=== PATIENT | male | born 1960 | race Caucasian/White ===

== ENCOUNTER 2016-12-01 16:32 | Emergency (ER) | payer OTHER ==
[2016-12-01] MEDS ORDERED: NS 0.9% 1000 ML* 1,000 ML IV SCH (17:30)
[2016-12-01 17:32] VITALS: BP 136/73
[2016-12-01 17:33] LABS: Hematocrit 42 % (42-52); Hemoglobin 14.2 g/dl (14.0-18.0); Mean Corpuscular HGB Conc 34 g/dl (31-36); Mean Corpuscular Hemoglobin 32 pg (27-31); Mean Corpuscular Volume 93 fL (80-94); Mean Platelet Volume 8 um3 (7.4-10.4); Red Blood Count 4.51 10^6/ul (4.0-5.4); Red Cell Distribution Width 13 % (10.5-15); White Blood Count 8.1 10^3/ul (3.5-10.8)
[2016-12-01 17:50] LABS: Albumin 3.9 g/dL (3.2-5.2); C Reactive Protein 2.15 mg/L (< 5.00); EGFR African American 98.7 (>60); EGFR Non-African American 76.7 (>60); Globulin 2.8 g/dL (2-4); Magnesium 2.1 mg/dL (1.9-2.7); Total Bilirubin 0.8 mg/dL (0.2-1.0); Total Protein 6.7 g/dL (6.4-8.9)
[2016-12-01 18:15] LABS: TSH (Thyroid Stimulating Horm) 0.6 mcIU/mL (0.34-5.60)
--- NOTE | 2016-12-01 18:15 | RAD ---
INDICATION: Chest pain COMPARISON: March 04, 2008 TECHNIQUE: An AP portable view obtained at 1750 hours is submitted. FINDINGS: Bones/Soft Tissues: There are no acute bony findings. Cardiomediastinal: The cardiomediastinal silhouette is normal. Lungs: There are no infiltrates. Pleura: There are no pleural effusions. Other: None IMPRESSION: NO ACTIVE DISEASE.
--- NOTE | 2016-12-01 18:27 | ED ---
Jackie Lunsford SooYoung, scribed for Eze Reddy MD on 12/01/16 at 1754 . HPI Chest Pain - HPI Summary HPI Summary: A 56 y/o M presents to ED with c/o non-radiating, constant CP located at his upper sternum onset 0200. Denies nausea, SOB, diaphoresis. He describes it as a mild ache and discomfort, rates it as 1-2 out of 10. 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 Pert PMHx: HDL. Non-smoker. No previous stress test. - History of Current Complaint Chief Complaint: EDChestPainROMI Time Seen by Provider: 12/01/16 17:51 Hx Obtained From: Patient Onset/Duration: Started Hours Ago, Still Present Timing: Constant Initial Severity: Mild Current Severity: Mild Pain Intensity: 0 Pain Scale Used: 0-10 Numeric Chest Pain Location: Upper Sternal Chest Pain Radiates: No Character: Dull/Aching, Other: - discomfort Associated Signs and Symptoms: Negative: Shortness of Breath, Diaphoresis, Nausea PMH/Surg Hx/FS Hx/Imm Hx Previously Healthy: No Cardiovascular History: Reports: Hx Hypercholesterolemia, Hx Hypertension Sensory History: Denies: Hx Vision Problem Infectious Disease History: No Infectious Disease History: Denies: Traveled Outside the [place] in Last 30 Days - Family History Known Family History: Positive: Unknown - adopted Family History: Adopted. - Social History Occupation: Unemployed - SELF Lives: Alone Alcohol Use: None Hx Substance Use: No Substance Use Type: Reports: None Smoking Status (MU): Unknown if Ever Smoked Review of Systems Negative: Fever, Skin Diaphoresis Positive: Chest Pain Negative: Shortness Of Breath Negative: Nausea All Other Systems Reviewed And Are Negative: Yes Physical Exam Triage Information Reviewed: Yes Vital Signs On Initial Exam: Initial Vitals Temp Pulse Resp BP Pulse Ox 98.4 F 91 16 149/79 98 12/01/16 16:34 12/01/16 16:34 12/01/16 16:34 12/01/16 16:34 12/01/16 16:34 Vital Signs Reviewed: Yes Appearance: Positive: Well-Appearing, No Pain Distress Skin: Positive: Warm, Skin Color Reflects Adequate Perfusion, Dry Head/Face: Positive: Normal Head/Face Inspection Eyes: Positive: EOMI, VONDA ENT: Positive: Normal ENT inspection Neck: Positive: Supple, Nontender Respiratory/Lung Sounds: Positive: Clear to Auscultation, Breath Sounds Present Cardiovascular: Positive: RRR Abdomen Description: Positive: Nontender, Soft Musculoskeletal: Positive: Normal, Strength/ROM Intact Neurological: Positive: Normal, Sensory/Motor Intact, Alert, Oriented to Person Place, Time Psychiatric: Positive: Affect/Mood Appropriate - [place] Coma Scale Coma Scale Total: 15 Diagnostics - Vital Signs Vital Signs Temp Pulse Resp BP Pulse Ox 12/01/16 17:30 98.2 F 85 16 136/73 98 12/01/16 16:34 98.4 F 91 16 149/79 98 - Laboratory Lab Results: Lab Results 12/01/16 12/01/16 12/01/16 Range/Units 17:10 17:10 17:10 WBC 8.1 (3.5-10.8) 10^3/ul RBC 4.51 (4.0-5.4) 10^6/ul Hgb 14.2 (14.0-18.0) g/dl Hct 42 (42-52) % MCV 93 (80-94) fL MCH 32 H (27-31) pg MCHC 34 (31-36) g/dl RDW 13 (10.5-15) % Plt Count 195 (150-450) 10^3/ul MPV 8 (7.4-10.4) um3 Neut % (Auto) 65.0 (38-83) % Lymph % (Auto) 25.1 (25-47) % [place] % (Auto) 8.5 (1-9) % Eos % (Auto) 0.8 (0-6) % Baso % (Auto) 0.6 (0-2) % Absolute Neuts (auto) 5.3 (1.5-7.7) 10^3/ul Absolute Lymphs (auto) 2.0 (1.0-4.8) 10^3/ul Absolute Monos (auto) 0.7 (0-0.8) 10^3/ul Absolute Eos (auto) 0.1 (0-0.6) 10^3/ul Absolute Basos (auto) 0 (0-0.2) 10^3/ul Absolute Nucleated RBC 0 10^3/ul Nucleated RBC % 0 INR (Anticoag Therapy) 0.98 (0.89-1.11) APTT 32.2 (26.0-36.3) seconds D-Dimer, Quantitative < 200 (Less Than 230) ng/mL Sodium 137 (133-145) mmol/L Potassium 4.0 (3.5-5.0) mmol/L Chloride 107 (101-111) mmol/L Carbon Dioxide 23 (22-32) mmol/L Anion Gap 7 (2-11) mmol/L BUN 15 (6-24) mg/dL Creatinine 1.00 (0.67-1.17) mg/dL Est GFR ( Amer) 98.7 (>60) Est GFR (Non-Af Amer) 76.7 (>60) BUN/Creatinine Ratio 15.0 (8-20) Glucose 98 (70-100) mg/dL Lactic Acid (0.5-2.0) mmol/L Calcium 9.0 (8.6-10.3) mg/dL Magnesium 2.1 (1.9-2.7) mg/dL Total Bilirubin 0.80 (0.2-1.0) mg/dL AST 22 (13-39) U/L ALT 24 (7-52) U/L Alkaline Phosphatase 64 (34-104) U/L Total Creatine Kinase 170 (10-223) U/L CK-MB (CK-2) Pending Troponin I 0.00 (<0.04) ng/mL C-Reactive Protein 2.15 (< 5.00) mg/L Total Protein 6.7 (6.4-8.9) g/dL Albumin 3.9 (3.2-5.2) g/dL Globulin 2.8 (2-4) g/dL Albumin/Globulin Ratio 1.4 (1-3) Lipase 16 (11.0-82.0) U/L TSH Pending 12/01/16 Range/Units 17:10 WBC (3.5-10.8) 10^3/ul RBC (4.0-5.4) 10^6/ul Hgb (14.0-18.0) g/dl Hct (42-52) % MCV (80-94) fL MCH (27-31) pg MCHC (31-36) g/dl RDW (10.5-15) % Plt Count (150-450) 10^3/ul MPV (7.4-10.4) um3 Neut % (Auto) (38-83) % Lymph % (Auto) (25-47) % [place] % (Auto) (1-9) % Eos % (Auto) (0-6) % Baso % (Auto) (0-2) % Absolute Neuts (auto) (1.5-7.7) 10^3/ul Absolute Lymphs (auto) (1.0-4.8) 10^3/ul Absolute Monos (auto) (0-0.8) 10^3/ul Absolute Eos (auto) (0-0.6) 10^3/ul Absolute Basos (auto) (0-0.2) 10^3/ul Absolute Nucleated RBC 10^3/ul Nucleated RBC % INR (Anticoag Therapy) (0.89-1.11) APTT (26.0-36.3) seconds D-Dimer, Quantitative (Less Than 230) ng/mL Sodium (133-145) mmol/L Potassium (3.5-5.0) mmol/L Chloride (101-111) mmol/L Carbon Dioxide (22-32) mmol/L Anion Gap (2-11) mmol/L BUN (6-24) mg/dL Creatinine (0.67-1.17) mg/dL Est GFR ( Amer) (>60) Est GFR (Non-Af Amer) (>60) BUN/Creatinine Ratio (8-20) Glucose (70-100) mg/dL Lactic Acid 0.8 (0.5-2.0) mmol/L Calcium (8.6-10.3) mg/dL Magnesium (1.9-2.7) mg/dL Total Bilirubin (0.2-1.0) mg/dL AST (13-39) U/L ALT (7-52) U/L Alkaline Phosphatase (34-104) U/L Total Creatine Kinase (10-223) U/L CK-MB (CK-2) Troponin I (<0.04) ng/mL C-Reactive Protein (< 5.00) mg/L Total Protein (6.4-8.9) g/dL Albumin (3.2-5.2) g/dL Globulin (2-4) g/dL Albumin/Globulin Ratio (1-3) Lipase (11.0-82.0) U/L TSH Result Diagrams: 12/01/16 17:10 12/01/16 17:10 Lab Statement: Any lab studies that have been ordered have been reviewed, and results considered in the medical decision making process. - Radiology CXR Xray Interpretation: No Acute Changes - IMPRESSION: No active dz. Radiology Interpretation Completed By: Radiologist Chest Pain Course/Dx - Course Course Of Treatment: NO CRITICAL CARE TIME. DISCUSSED RESULTS WITH PATIENT/ . DISCUSSED ADMISSION WITH PATIENT. PATIENT DECLINED ADMISSION. CHEST PAIN SINCE 2AM SO, TROPONIN IN ED WAS GREATER THAN 6 HOURS POST ONSET. DISCHARGE HOME STABLE, F/U WITH PMD TOMORROW, RETURN IF WORSE OR ANY CONCERNS. Pt given fluids in ED. Lab results are nml. CXR is nml. Assessment/Plan: Discussed f/u with PCP, taking daily baby aspirin, and having a stress test done. - Diagnoses Provider Diagnoses: Chest pain - Provider Notifications Discussed Care Of Patient With: David Durbin - hospitalist Time Discussed With Above Provider: 18:09 Discharge - Discharge Plan Condition: Stable Disposition: HOME Patient Education Materials: Chest Pain (ED) Referrals: Giovanni Atkinson MD [Primary Care Provider] - Additional Instructions: FOLLOW UP WITH YOUR DOCTOR. RETURN TO THE EMERGENCY DEPARTMENT FOR ANY WORSENING OF YOUR CONDITION; CHEST PAIN, SHORTNESS OF BREATH, YOU FEEL ILL OR QUESTIONS OR CONCERNS. The documentation as recorded by the Jackie mendez SooYoung accurately reflects the service I personally performed and the decisions made by me, Eze Reddy MD.
== END 2016-12-01 18:39 | disposition home or self-care (01) ==
LOC: ED 16:32
DX: R07.9 Chest pain, unspecified (principal); E78.00 Pure hypercholesterolemia, unspecified; I10 Essential (primary) hypertension
CPT/HCPCS: 36415; 71010; 80053; 82550; 82553; 83605; 83690; 83735; 83880; 84443; 84484; 85025; 85379; 85610; 85730; 86140; 93005; 99284

== ENCOUNTER 2018-12-13 11:11 | Emergency (ER) | payer OTHER ==
--- NOTE | 2018-12-13 11:21 | UC ---
Abdominal Pain Male HPI - HPI Summary HPI Summary: 58 yo male presents with LLQ/left flank pain since 1800 last evening. He has been vomiting since that time and unable to eat or drink. He has never had a kidney stone in the past. He was feeling well prior to this event. Denies diarrhea, constipation, dysuria, or hematuria. No SOB or chest pain. PMHx with HTN and HLD. - History of Current Complaint Stated Complaint: ABD PAIN Time Seen by Provider: 12/13/18 11:20 Hx Obtained From: Patient Onset/Duration: Sudden Onset Severity Initially: Severe Severity Currently: Severe Pain Intensity: 10 Pain Scale Used: 0-10 Numeric - Allergies/Home Medications Allergies/Adverse Reactions: Allergies Allergy/AdvReac Type Severity Reaction Status Date / Time No Known Allergies Allergy Verified 12/13/18 11:24 PMH/Surg Hx/FS Hx/Imm Hx Endocrine History: Dyslipidemia Cardiovascular History: Hypertension - Surgical History Surgical History: None - Family History Known Family History: Positive: Unknown - adopted Family History: Adopted. - Social History Lives: With Family Alcohol Use: None Substance Use Type: None Smoking Status (MU): Unknown if Ever Smoked Review of Systems All Other Systems Reviewed And Are Negative: Yes Constitutional: Positive: Negative Skin: Positive: Negative Respiratory: Positive: Negative Cardiovascular: Positive: Negative Gastrointestinal: Positive: Abdominal Pain, Vomiting, Nausea Neurovascular: Positive: Negative Neurological: Positive: Negative Psychological: Positive: Negative Physical Exam - Summary Physical Exam Summary: GENERAL: Moderate pain distress. Vomiting. SKIN: No rashes, sores, lesions, or open wounds. NECK: Supple. Nontender. No lymphadenopathy. CHEST: CTAB. Tachypneic CV: RRR. Without m/r/g. Pulses intact. Cap refill <2seconds ABDOMEN: Soft. NTTP. No distention or guarding. Bowel sounds present. Left flank TTP. NEURO: Alert. PSYCH: Age appropriate behavior. Triage Information Reviewed: Yes Vital Signs: Vital Signs: Temp Pulse Resp BP Pulse Ox 97.1 F 74 26 117/70 97 12/13/18 11:29 12/13/18 11:29 12/13/18 11:29 12/13/18 11:29 12/13/18 11:29 Vital Signs Reviewed: Yes Abd Pain Male Course/Dx - Course Course Of Treatment: High suspicion for urinary calculi at this time, but given pt's degree of discomfort and no hx of kidney stones - recommended transfer to ED for further evaluation. His discomfort could also represent diverticulitis and/or bowel perforation, but he is currently afebrile. Pt was agreeable to transfer. In the clinic he was given Zofran 4mg, Morphine 4mg, and toradol 30mg IV. Transferred via [facility] to [facility] [place] ED. Call to Emma in the ED for report - Differential Dx/Clinical Impression Provider Diagnosis: Abdominal pain, Flank pain Discharge - Sign-Out/Discharge Documenting (check all that apply): Patient Departure All imaging exams completed and their final reports reviewed: No Studies - Discharge Plan Condition: Stable Disposition: TRANS HIGHER LVL OF CARE FAC Referrals: Olena Quezada [Primary Care Provider] - - Billing Disposition and Condition Condition: STABLE Disposition: Trans Higher Lvl of Care Fac - Attestation Statements Provider Attestation: I was available for consult. This patient was seen by the [facility]ALE[facility]. The patient was not presented to, seen by, or examined by me. -Chito
[2018-12-13] MEDS ORDERED: Ondansetron INJ* 2 MG/ML VIAL IV ONE (11:27)
[2018-12-13] MEDS ORDERED: Morphine 4 MG/ML VIAL (1 ml) 4 MG/ML VIAL IV ONE (11:27)
[2018-12-13] MEDS ORDERED: Ketorolac INJ* 30 MG/ML 1 ML VIAL IV PUSH ONE (11:29)
[2018-12-13 11:34] VITALS: BP 117/70
[2018-12-13] MEDS ORDERED: NS 0.9% 1000 ML** 1,000 ML IV ONE (11:38)
[2018-12-13] MEDS ORDERED: Morphine 10 MG/ML VIAL (1 ml) IV ONE (11:42)
== END 2018-12-13 12:00 | disposition short-term general hospital (02) ==
LOC: UCEAST 11:11
DX: R10.32 Left lower quadrant pain (principal); R10.9 Unspecified abdominal pain; E78.5 Hyperlipidemia, unspecified; I10 Essential (primary) hypertension
CPT/HCPCS: 96360; 99213; G0463; J1885; J2270; J2405

== ENCOUNTER 2018-12-13 12:13 | Emergency (ER) | payer OTHER ==
[2018-12-13] MEDS ORDERED: NS 0.9% 1000 ML** 1,000 ML IV ONE (12:31)
[2018-12-13 13:14] LABS: ABS Basophils 0.1 10^3/ul (0-0.2); ABS Lymphocytes 1.1 10^3/ul (1.0-4.8); ABS Monocytes 1.2 10^3/ul (0-0.8); ABS Neutrophils 10.4 10^3/ul (1.5-7.7); Eosinophil % 0.2 %; Hematocrit 44 % (42-52); Hemoglobin 14.7 g/dL (14.0-18.0); Lymphocyte % 8.9 %; Mean Corpuscular HGB Conc 34 g/dL (31-36); Mean Corpuscular Hemoglobin 32 pg (27-31); Mean Corpuscular Volume 94 fL (80-94); Mean Platelet Volume 7.7 fL (7.4-10.4); Platelet Count 205 10^3/uL (150-450); Red Blood Count 4.63 10^6 /uL (4.18-5.48); Red Cell Distribution Width 13 % (10-15); White Blood Count 12.8 10^3/uL (3.5-10.8)
--- NOTE | 2018-12-13 13:19 | ED ---
Abdominal Pain/Male - HPI Summary HPI Summary: Patient is a 58 y/o M presenting to ED via EMS with complaints of LLQ pain, N/V that onset last night at 1800. He states that he went to sleep last night and when he woke up this morning, his pain was not severe. However, while at work this morning, he experienced an exacerbation of pain. Patient went to urgent care, he was given 4 mg morphine, 4 mg zofran, and 30 mg toradol. He was sent to ED for further evaluation. At present, patient denies pain. On triage, nothing is noted to aggravate/alleviate Sx. Home medications and allergies are reviewed. - History of Current Complaint Chief Complaint: EDAbdPain Stated Complaint: ABD PAIN Hx Obtained From: Patient Onset/Duration: Lasting Days - onset last night, Resolved Timing: Lasting Days - onset last night Severity Initially: Moderate Severity Currently: None Pain Intensity: 0 Pain Scale Used: 0-10 Numeric Location: Discrete At: LLQ Aggravating Factor(s): Nothing Alleviating Factor(s): Nothing Associated Signs And Symptoms: Positive: Nausea, Vomiting. Negative: Fever - on vitals, temp is 97 F - Allergies/Home Medications Allergies/Adverse Reactions: Allergies Allergy/AdvReac Type Severity Reaction Status Date / Time No Known Allergies Allergy Verified 12/13/18 11:24 Home Medications: Home Medications Atorvastatin* [Lipitor 20 MG*] 10 mg PO DAILY 12/13/18 [History Confirmed ] FLUoxetine CAP* [Prozac CAP*] 10 mg PO DAILY 12/13/18 [History Confirmed ] Lisinopril TAB* [Prinivil TAB 10 MG*] 10 mg PO DAILY 12/13/18 [History Confirmed 12/13/18] PMH/Surg Hx/FS Hx/Imm Hx Cardiovascular History: Reports: Hx Hypercholesterolemia, Hx Hypertension Sensory History: Denies: Hx Vision Problem Opthamlomology History: Denies: Hx Vision Problem Infectious Disease History: No Infectious Disease History: Denies: Traveled Outside the [place] in Last 30 Days - Family History Known Family History: Positive: Unknown - adopted Family History: Adopted. - Social History Alcohol Use: None Hx Substance Use: No Substance Use Type: Reports: None Smoking Status (MU): Never Smoked Tobacco Review of Systems Negative: Fever - on vitals, 97 F Positive: Abdominal Pain, Vomiting, Nausea All Other Systems Reviewed And Are Negative: Yes Physical Exam - Summary Physical Exam Summary: VITAL SIGNS: Reviewed. GENERAL: Patient is a well-developed and nourished male who is lying comfortable in the stretcher. Patient is not in any acute respiratory distress. HEAD AND FACE: Normocephalic and atraumatic. EYES: PERRLA, EOMI x 2, No injected conjunctiva. EARS: Hearing grossly intact. Ear canals and tympanic membranes are WNL. MOUTH: Oropharynx within normal limits. NECK: Supple, trachea is midline, no adenopathy, no JVD. CHEST: Symmetric, no tenderness at palpation LUNGS: Clear to auscultation bilaterally. No wheezing or crackles. CVS: RRR, S1 and S2 present, no murmurs or gallops appreciated. ABDOMEN: Soft, LLQ tenderness. No signs of distention. Positive bowel sounds. No rebound no guarding, and no masses palpated. No abdominal bruit or pulsations. EXTREMITIES: FROM in all major joints, no edema, no cyanosis or clubbing. NEURO: Alert and oriented x 3. No acute neurological deficits. Speech is normal. SKIN: Dry and warm. Triage Information Reviewed: Yes Vital Signs On Initial Exam: Initial Vitals Temp Pulse Resp BP Pulse Ox 97.0 F 68 18 132/77 95 12/13/18 12:15 12/13/18 12:15 12/13/18 12:15 12/13/18 12:15 12/13/18 12:15 Vital Signs Reviewed: Yes Diagnostics - Vital Signs Vital Signs Temp Pulse Resp BP Pulse Ox 12/13/18 13:00 14 12/13/18 12:45 73 14 131/74 91 12/13/18 12:17 75 96 12/13/18 12:16 72 132/77 97 12/13/18 12:15 97.0 F 68 18 132/77 95 - Laboratory Lab Results: Lab Results 12/13/18 Range/Units 13:05 WBC 12.8 H (3.5-10.8) 10^3/uL RBC 4.63 (4.18-5.48) 10^6 /uL Hgb 14.7 (14.0-18.0) g/dL Hct 44 (42-52) % MCV 94 (80-94) fL MCH 32 H (27-31) pg MCHC 34 (31-36) g/dL RDW 13 (10-15) % Plt Count 205 (150-450) 10^3/uL MPV 7.7 (7.4-10.4) fL Neut % (Auto) 81.2 % Lymph % (Auto) 8.9 % [place] % (Auto) 9.1 % Eos % (Auto) 0.2 % Baso % (Auto) 0.6 % Absolute Neuts (auto) 10.4 H (1.5-7.7) 10^3/ul Absolute Lymphs (auto) 1.1 (1.0-4.8) 10^3/ul Absolute Monos (auto) 1.2 H (0-0.8) 10^3/ul Absolute Eos (auto) 0.0 (0-0.6) 10^3/ul Absolute Basos (auto) 0.1 (0-0.2) 10^3/ul Absolute Nucleated RBC 0.0 10^3/ul Nucleated RBC % 0.0 Result Diagrams: 12/13/18 13:05 12/13/18 13:05 Lab Statement: Any lab studies that have been ordered have been reviewed, and results considered in the medical decision making process. - CT ABD/PEL CT CT Interpretation Completed By: Radiologist Summary of CT Findings: IMPRESSION: Mild left hydronephrosis with a 0.4 cm ureteral calculi at the L3-L4 disc. level. No other masses or fluid collections are noted. Cortical cysts are noted in both kidneys. THIS REPORT WAS REVIEWED BY DR. TONG. Re-Evaluation - Re-Evaluation First Eval Re-Evaluation Time: 13:09 Change: Improved Comment: After these medications the patients symptoms have resolved. The patient is asymptomatic. I discussed all the findings and test results with the patient. Patient was instructed to return to the emergency room immediately if any of the symptoms return worsens. Plan of care was discussed with the patient and understands and agrees. All questions were answered at patient satisfaction. There were no further complaints or concerns. Lung exam before discharge: CTA B/L. Good air exchange. No wheezing or crackles heard. CVS: S1 and S2 present. No murmurs appreciated. Patient is alert and oriented x 3. Patient is hemodynamically stable. Patient will be discharged home with follow up PCP in the next 2-3 days Abdominal Pain Male Course/Dx - Course Assessment/Plan: Patient is a 58 y/o M presenting to ED via EMS with complaints of LLQ pain, N/V that onset last night at 1800. He states that he went to sleep last night and when he woke up this morning, his pain was not severe. However, while at work this morning, he experienced an exacerbation of pain. Patient went to urgent care, he was given 4 mg morphine, 4 mg zofran, and 30 mg toradol. He was sent to ED for further evaluation. At present, patient denies pain. Past medical history significant for: 1- Depression. 2- Dyslipidemia. 3- Hypertension. Blood test results without any significant abnormalities except for an WBCs of 12.8, creatinine 1.38, glucose 113, and CRP 2.64. Abdominal pelvic CT impression: Mild hydronephrosis with a 0.4 cm be to calculi in the L3 and L4 this level. In the ED course the patient was given IV fluids and he was given Toradol for the pain. After these medications the patients symptoms have resolved. The patient is asymptomatic. I discussed all the findings and test results with the patient. Patient was instructed to return to the emergency room immediately if any of the symptoms return worsens. Plan of care was discussed with the patient and understands and agrees. All questions were answered at patient satisfaction. There were no further complaints or concerns. Lung exam before discharge: CTA B/L. Good air exchange. No wheezing or crackles heard. CVS: S1 and S2 present. No murmurs appreciated. Patient is alert and oriented x 3. Patient is hemodynamically stable. Patient will be discharged home with follow up PCP in the next 2-3 days - Diagnoses Provider Diagnoses: Kidney stones, Renal colic Discharge - Sign-Out/Discharge Documenting (check all that apply): Patient Departure - DISCHARGE Patient Received Moderate/Deep Sedation with Procedure: No - Discharge Plan Condition: Stable Disposition: HOME Prescriptions: HYDROcodone/ACETAMIN 5-325 MG* [[place] 5-325 TAB*] 1 tab PO Q6H PRN #12 tab MDD 4 PRN Reason: Pain Patient Education Materials: Kidney Stones (ED) Referrals: Olena Quezada [Primary Care Provider] - 3 Days Pantera Tang MD [Medical Doctor] - 3 Days Additional Instructions: PLEASE RETURN TO ED FOR ANY CHANGING OR WORSENING SYMPTOMS. FOLLOW UP WITH YOUR PRIMARY CARE PHYSICIAN AND UROLOGIST WITHIN THREE DAYS. - Billing Disposition and Condition Condition: STABLE Disposition: Home - Attestation Statements Document Initiated by Scribe: Yes Documenting Scribe: KEVIN MUNOZ Provider For Whom Scribe is Documenting (Include Credential): ALONDRA TONG MD Scribe Attestation: IKEVIN, scribed for ALONDRA TONG MD on 12/13/18 at 2144. Scribe Documentation Reviewed: Yes Provider Attestation: The documentation as recorded by the KEVIN mendez accurately reflects the service I personally performed and the decisions made by me, ALONDRA TONG MD Status of Scribe Document: Viewed
[2018-12-13 13:31] LABS: Albumin 4.1 g/dL (3.2-5.2); Albumin/Globulin Ratio 1.6 (1-3); BUN/Creatinine Ratio 15.9 (8-20); C Reactive Protein 2.64 mg/L (<8.01); Calcium 8.9 mg/dL (8.6-10.3); EGFR African American 63.6 (>60); EGFR Non-African American 52.6 (>60); Globulin 2.6 g/dL (2-4); Total Bilirubin 0.9 mg/dL (0.2-1.0); Total Protein 6.7 g/dL (6.4-8.9)
[2018-12-13] MEDS ORDERED: Iodixanol* (CONTRAST) 320 MG/ML 100 ML SDV IV ONE (14:26)
[2018-12-13] MEDS ORDERED: Ketorolac INJ* 30 MG/ML 1 ML VIAL IV PUSH ONE (16:04)
[2018-12-13 16:35] LABS: Urine Appearance Clear; Urine Bilirubin Negative (Negative); Urine Blood Negative (Negative); Urine Color Yellow; Urine Glucose Negative (Negative); Urine Ketones Negative (Negative); Urine Nitrite Negative (Negative); Urine Protein Negative (Negative); Urine Specific Gravity 1.058 (1.010-1.030); Urine Urobilinogen Negative (Negative)
[2018-12-13 17:07] VITALS: BP 133/88
== END 2018-12-13 17:06 | disposition home or self-care (01) ==
LOC: ED 12:13
DX: N13.2 Hydronephrosis with renal and ureteral calculous obstruction (principal); R11.2 Nausea with vomiting, unspecified; E78.00 Pure hypercholesterolemia, unspecified; I10 Essential (primary) hypertension; F32.9 Major depressive disorder, single episode, unspecified
CPT/HCPCS: 36415; 74177; 80053; 81003; 83605; 83690; 85025; 86140; 96360; 99283; Q9967